=== PATIENT | male | born 1985 | race Caucasian/White ===

== ENCOUNTER 2018-04-26 12:15 | Emergency (ER) | payer OTHER ==
[2018-04-26] MEDS ORDERED: Bacitracin Zinc 1 Packet ONE (12:28)
== END 2018-04-26 12:40 | disposition home or self-care (01) ==
LOC: SCSER 12:15
DX: S61.012A Laceration without foreign body of left thumb without damage to nail, initial encounter (principal); F41.9 Anxiety disorder, unspecified; Z79.899 Other long term (current) drug therapy; W45.8XXA Other foreign body or object entering through skin, initial encounter
CPT/HCPCS: 99283